=== PATIENT | male | born 1955 | race Hispanic/Latino ===

== ENCOUNTER 2020-11-06 09:10 | Outpatient (CLI) | payer MEDICARE | END 2020-11-06 09:11 | disposition home or self-care (01) | LOC: CSHWCC 09:10 | PROVIDERS: ATTEND Nurse Practitioner Family | DX: L89.154 Pressure ulcer of sacral region, stage 4 (principal); E11.622 Type 2 diabetes mellitus with other skin ulcer; E11.36 Type 2 diabetes mellitus with diabetic cataract; I10 Essential (primary) hypertension; Z74.01 Bed confinement status; Z86.16 Personal history of COVID-19 | CPT/HCPCS: 97605 ==

== ENCOUNTER 2020-11-09 13:31 | Outpatient (CLI) | payer MEDICARE | END 2020-11-09 13:32 | disposition home or self-care (01) | LOC: CSHWCC 13:31 | PROVIDERS: ATTEND Nurse Practitioner Family | DX: L89.154 Pressure ulcer of sacral region, stage 4 (principal); E11.36 Type 2 diabetes mellitus with diabetic cataract; I10 Essential (primary) hypertension; Z74.01 Bed confinement status; Z86.16 Personal history of COVID-19 | CPT/HCPCS: 99213; G0463 ==

== ENCOUNTER 2020-11-16 14:45 | Outpatient (CLI) | payer MEDICARE | END 2020-11-16 14:46 | disposition home or self-care (01) | LOC: CSHWCC 14:45 | PROVIDERS: ATTEND Nurse Practitioner Family | DX: L89.154 Pressure ulcer of sacral region, stage 4 (principal); E11.622 Type 2 diabetes mellitus with other skin ulcer; E11.36 Type 2 diabetes mellitus with diabetic cataract; I10 Essential (primary) hypertension; Z74.01 Bed confinement status; Z86.16 Personal history of COVID-19 | CPT/HCPCS: 97139; G0463; 99213 ==

== ENCOUNTER 2020-11-30 11:23 | Outpatient (CLI) | payer MEDICARE | END 2020-11-30 11:24 | disposition home or self-care (01) | LOC: CSHWCC 11:23 | PROVIDERS: ATTEND Nurse Practitioner Family | DX: L89.154 Pressure ulcer of sacral region, stage 4 (principal); E11.622 Type 2 diabetes mellitus with other skin ulcer; L98.499 Non-pressure chronic ulcer of skin of other sites with unspecified severity; E11.36 Type 2 diabetes mellitus with diabetic cataract; I10 Essential (primary) hypertension; Z74.01 Bed confinement status; Z86.16 Personal history of COVID-19 | CPT/HCPCS: 17250; 97605; 99213; G0463 ==

== ENCOUNTER 2020-12-14 10:32 | Outpatient (CLI) | payer MEDICARE | END 2020-12-14 10:33 | disposition home or self-care (01) | LOC: CSHWCC 10:32 | PROVIDERS: ATTEND Nurse Practitioner Family | DX: L89.154 Pressure ulcer of sacral region, stage 4 (principal); E11.622 Type 2 diabetes mellitus with other skin ulcer; L98.499 Non-pressure chronic ulcer of skin of other sites with unspecified severity; E11.36 Type 2 diabetes mellitus with diabetic cataract; I10 Essential (primary) hypertension; Z74.01 Bed confinement status; Z86.16 Personal history of COVID-19 | CPT/HCPCS: 99213; G0463 ==

== ENCOUNTER 2020-12-28 11:15 | Outpatient (CLI) | payer MEDICARE | END 2020-12-28 11:16 | disposition home or self-care (01) | LOC: CSHWCC 11:15 | PROVIDERS: ATTEND Nurse Practitioner Family | DX: L89.154 Pressure ulcer of sacral region, stage 4 (principal); E11.622 Type 2 diabetes mellitus with other skin ulcer; E11.36 Type 2 diabetes mellitus with diabetic cataract; I10 Essential (primary) hypertension; Z74.01 Bed confinement status; Z86.16 Personal history of COVID-19 | CPT/HCPCS: 99212; G0463 ==